=== PATIENT | male | born 2000 | race Caucasian/White ===

== ENCOUNTER 2020-05-13 15:14 | Emergency (ER) | payer OTHER ==
[2020-05-13] MEDS ORDERED: Ketorolac 60 MG/2 ML SDV IM ONE (15:23)
[2020-05-13] MEDS ORDERED: HYDROmorphone 1 MG/ML Syringe IVPUSH ONE (15:25)
[2020-05-13] MEDS ORDERED: Sodium Chloride 0.9% 10 ML Syringe FLUSH PRN (15:25)
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
[2020-05-13] MEDS ORDERED: Propofol 200 MG/20 ML SDV ONE (16:35)
--- NOTE | 2020-05-16 09:10 | CR ---
Wrist Comp Min 3V Lt, Fluoro Up To 1Hr CLINICAL HISTORY: Trauma FINDINGS: There is a comminuted displaced fracture of the distal radius with moderate to dorsal displacement and angulation. There appears to be tiny avulsion fragments near the ulnar styloid. IMPRESSION: Comment a displaced fracture distal radius and avulsion fractures off the ulnar styloid Fluoro Up To 1Hr FLUOROSCOPY TIME: 2.4 seconds
== END 2020-05-13 17:14 | disposition home or self-care (01) ==
LOC: JP.ED 15:14
DX: S52.502A Unspecified fracture of the lower end of left radius, initial encounter for closed fracture (principal); V86.52XA Driver of snowmobile injured in nontraffic accident, initial encounter
CPT/HCPCS: 25605; 73110; 76000; 96374; 99283; J1170; J2704